=== PATIENT | female | born 1940 | race Caucasian/White ===

== ENCOUNTER → 2016-12-10 | Outpatient (CLI) | payer OTHER ==
[2016-12-10 15:17] LABS: CHOLESTEROL/HDL RATIO 3.4
== END | disposition home or self-care (01) ==
LOC: C.LABMFLN 07:47
PROVIDERS: ATTEND Family Medicine
DX: E55.9 Vitamin D deficiency, unspecified (principal); E78.5 Hyperlipidemia, unspecified

== ENCOUNTER 2021-08-29 11:33 | Observation (INO) ==
[2021-08-29 12:38] LABS: Basophils # (auto) 0.01 K/uL (0-0.2); Basophils % (auto) 0.2 %; Eosinophils # (auto) 0.17 K/uL (0-0.5); Eosinophils % (auto) 2.9 %; Hematocrit (blood only) 41.2 % (37-47); Hemoglobin 13.8 g/dL (12.0-16.0); Immature Granulocytes # (auto) 0.01 K/uL (0.00-0.02); Immature Granulocytes % (auto) 0.2 %; Lymphocytes # (auto) 1.16 K/uL (1.2-3.4); Lymphocytes % (auto) 19.5 %; Mean Corpuscular Hemoglobin 32.2 pg (25-34); Mean Corpuscular Hgb Conc 33.5 g/dL (32-36); Mean Platelet Volume 9.5 fL (7.4-10.4); Monocytes # (auto) 0.38 K/uL (0.11-0.59); Monocytes % (auto) 6.4 %; Neutrophils # (auto) 4.21 K/uL (1.4-6.5); Neutrophils % (auto) 70.8 %; Platelet Count 181 K/uL (130-400); RDW Coefficient of Variation 13.2 % (11.5-14.5); RDW Standard Deviation 45.6 fL (36.4-46.3); Red Blood Count 4.29 M/uL (4.2-5.4); White Blood Count 5.94 K/uL (4.8-10.8)
--- NOTE | 2021-08-29 12:44 | XRay Report ---
XR chest 1V portable CLINICAL HISTORY: Atypical chest pain TECHNIQUE: Single frontal radiograph of the chest was obtained. Comparison: None available at the time of this dictation. FINDINGS: No lines and tubes are seen. The cardiomediastinal silhouette is normal. The lungs are clear. Possibl e small left pleural effusion versus epicardial fat pad. IMPRESSION: No acute abnormality. Possible small left pleural effusion versus epicardial fat pad. ACT 112: Negative or not required by law. Electronically signed by: Cy Chow M.D. 08/29/2021 12:43 PM
[2021-08-29 12:49] LABS: Albumin Globulin Ratio 1.6 (0.9-2); Albumin Level 4.1 gm/dl (3.4-5.0); Bilirubin,Total 0.9 mg/dl (0.2-1.0); Creatinine Clr Calc Pharmacy 61.2 ml/min; Est GFR (African American) 98.4 ml/min; Est GFR (Non-African American) 84.9 ml/min; Globulin 2.6 gm/dl (2.5-4.0); Potassium 3.8 mmol/L (3.5-5.1); Total Protein 6.7 gm/dl (6.0-8.3)
--- NOTE | 2021-08-29 14:48 | History & Physical Report ---
Date of Service August 29, 2021 Assessment & Plan (1) Coronary artery disease: Plan: Chest pain, Hx CAD with PCI RCA SHAGU[place] 01/15/[address] Lopez. Last note 05/10/2021. DAPT was switched to aspirin monotherapy at that visit patient has been doing well Leukocytosis, hemoglobin normal, MCV normal Sodium, potassium normal Creatinine 0.60 creatinine clearance drug dosing 61.2 Transaminases normal High-sensitivity troponin normal, repeat pending Admitting EKG: Normal sinus rhythm, no acute ST segment or T wave changes. Lipids 07/03/2021: Triglycerides 198, cholesterol 154, LDL 55, VLDL 40, HDL 59 Lipase on admission 51, normal COVID pending CXR: No acute abnormality, possible small left pleural effusion versus epicardial fat pad Admit for cardiac rule out. Echo pending. Troponins trended as noted. Patient has had dilution of symptoms by time of admission. (2) Osteoporosis: Plan: Osteoporosis Bone densitometry 11/16/2020 with 10-year risk 17, hip fracture 5.6. High risk. Patient had an allergic reaction to Fosamax. On Prolia as outpatient Continue calcium/vitamin D supplementation (3) Rosacea: Plan: Rosacea Follows with Dr. Soto dermatology Has been taking minocycline 50 mg twice daily Pruritus improved with switching Dial soap to Dove Patient reports he feels she is doing well, stomach tolerates minocycline well. Denies side effects of minocycline, denies GERD, but does note stomach upset to tetracycline. Discussed with patient that minocycline is a tet racycline, but she reports that she has not had any symptoms while on this particular antibiotic. ? Gastritis. Has deferred PPI due to osteoporosis, will trial H2 crystal. No symptoms at time of assessment. (4) Hyperlipidemia: Plan: Hyperlipidemia Continue atorvastatin 40 mg daily (5) History of ileostomy: Plan: Patient reports had a history of obstruction, no history of cancer Routine ostomy care, will continue to obtain collateral but appears to be at baseline no change in output or signs of obstruction (6) Memory loss: Plan: Cognitive decline 03/27/2020 normal mini cog, decreased to 4 points 03/27/2021 Oriented to name, place, and month. Not oriented to date, reorients easily. Answers questions appropriately, and is able to verbalize back her reason for admission and plan Delirium precautions (7) Vitamin B 12 deficiency: Plan: Vitamin B12 deficiency Low normal at last check, will continue supplementation Folate normal at last check Plan: DVT prophylaxis: Lovenox Diet: Heart healthy Disposition: Medical telemetry for cardiac eval CODE STATUS: DNR/DNI per patient. Is able to verbalize back the risk/benefits of CPR/intubation at bedside, is able to express that she would not want heroic measures. Given history of some cognitive decline did attempt to reach out to discuss this with her , however was not available by phone with no voicemail box set up. History of Present Illness Primary Care Provider: Bernardo Jung MD Mirta is an 80-year-old female history of CAD status post PCI 01/2020, hypercholesterolemia, rosacea, osteopenia, vitamin D deficiency, vitamin B12 deficiency who was at a medical appointment with her when she felt ill and developed chest pain and became pale. She presented to the ER for cardiac evaluation. Normotensive with symptom resolution by time of ER evaluation. Of note on medical reconciliation report the patient has not filled her nitro/Plavix in many months. Middle substernal chest pain. 6-7/10 intensity, 'hurting quality, not real sharp but hurt.' Did not go into the shoulder or neck. +Mild shortness of breath. +sweating. Episode lasted about 15-30 minutes. No chest pain in the last few weeks/months. Normally walks and can go up stairs without pain or limitation. mild nausea. No vomiting. Has an ileostomy from 'trouble where I just couldn't go until they had to remove a blockage.' No history of cancer. Denies fevers, chills, sweats, cough, shortness of breath at bedside no lightheadedness/dizziness/syncope/presyncope Medical History: Reviewed Medications: Reviewed Surgical History: Reviewed Allergies: Reviewed. +nausea to tetracycline. Social History: No tobacco/alcohol use. No recreaitnal drug use. Code Status: Surrogate would be Enrike Paz. Tempted to reach by phone on admission, not available by phone with no voicemail box set up. Allergies Allergy/AdvReac Type Severity Reaction Status Date / Time alendronate sodium Allergy Severe TROUBLE Verified 08/29/21 12:49 BREATHING metronidazole Allergy Unknown UNKNOWN Verified 08/29/21 12:49 codeine AdvReac Unknown NAUSEA Verified 08/29/21 12:49 Home Medications Medication Instructions Recorded Confirmed Type glucosamine 750 wl-rycdvxhjqzq-irl 1 tab PO DAILY tab 12/08/18 07/03/21 History no1 625 mg-C 30 mg-emma 1 mg tablet (Nqbdxoqiblb-Pvkxqcrtard-IFK) loratadine 10 mg tablet 10 mg PO DAILY #90 tab 12/08/18 07/03/21 History ergocalciferol (vitamin D2) 1,250 50,000 units PO 2XWK cap 12/11/18 07/03/21 History mcg (50,000 unit) capsule clopidogrel 75 mg tablet 75 mg PO DAILY 02/09/20 07/03/21 History metoprolol tartrate 50 mg tablet 50 mg PO BID 02/09/20 08/29/21 History aspirin 81 mg tablet,delayed 81 mg PO DAILY #30 tab 03/27/20 08/29/21 Rx release nitroglycerin 0.4 mg sublingual 0.4 mg SUBLINGUAL Q5M PRN #25 tab 03/27/20 07/03/21 Rx tablet atorvastatin 40 mg tablet 40 mg PO DAILY #90 tab 07/03/21 08/29/21 Rx denosumab 60 mg/mL subcutaneous 60 mg SUBCUT ONCE #1 ml 07/03/21 08/29/21 Rx syringe (Prolia) triamcinolone acetonide 0.1 % 1 applic TOPICAL BID PRN #80 g 07/03/21 08/29/21 Rx topical cream minocycline 50 mg capsule 50 mg PO BID #60 cap 07/26/21 08/29/21 Rx Past Med/Surg History Medical History Allergic rhinitis Chronic low back pain Coronary artery disease Hearing loss of both ears due to cerumen impaction History of melanoma Hyperlipidemia Mohs defect of cheek Osteopenia Osteoporosis Rosacea Vitamin B 12 deficiency Vitamin D deficiency Surgical History History of blepharoplasty History of cataract surgery History of cystostomy History of ileostomy Family History Father Coronary heart disease Hypertension Myocardial infarction Sister Breast cancer Bipolar disorder Son Ventricular fibrillation Other Cancer Social History Smoking Status: Never smoker Hx Alcohol Use: No Hx Substance Use: No Preferred Language: Welsh Communication Ability: Effective Visual Impairment: No Limitations Commercial Photographer Required: No Beliefs That Will Affect Care: None marital status: Current Living Situation: Spouse current occupational status: retired Feels Safe at Home: Yes Childhood Exposure to Second-Hand Smoke: Yes caffeine: Yes during the past year weight has: remained stable Dental Care, Regularly: Yes Physical Activity Frequency: Does not Exercise Seatbelt Use: always Sunscreen Use: Yes Review of Systems Review of Systems: All systems reviewed & are unremarkable except as noted in Subjective Physical Exam Physical Exam: General: Alert, oriented to name, place, month. Not oriented to year, easily reorientsNAD. Cooperative. HEENT: Atraumatic, normocephalic. Pupils equal reactive to light. Vision and hearing grossly intact Pulm: CTAB A&P. -wheezes, -rales, -rhonchi. Symmetrical chest rise. No increase in work of breathing. No respiratory distress. Cardiac: RRR, -mrg. Radial pulses intact and symmetrical. Abdominal: Nontender, nondistended, soft. BS present. Ostomy bag in place in right lower quadrant, draining brown and some green material. Nontender, no erythema. Output normal per patient. Extremities: Sensation to soft touch intact in hands and feet without asymmetry. No lower extremity edema. Trench Digger strength, ankle plantarflexion/dorsiflexion, hip flexion 5/5 and symmetrical. Results & Data Results & Data ([facility]) Vital Signs (Past 12 Hours) Vital Signs Temp Pulse Pulse Resp BP BP Pulse Ox 08/29/21 13:18 61 138/74 97 08/29/21 11:49 97 08/29/21 11:48 36.5 C 59 L 20 144/59 H 97 08/29/21 11:40 36.5 C 62 20 144/59 H 98 PG Care Time/CCT Total # of Minutes Spent Total Time Spent with Patient: Total time spent is greater than 50% in coordination of care (as documented) at patient's floor/unit and/or counseling patient: Coding Level of Care Code INT OBSERVATION CARE 70M LVL 3 Diagnoses Coronary artery disease I25.10 Osteoporosis M81.0 Rosacea L71.9 Hyperlipidemia E78.5 History of ileostomy Z98.890 Memory loss R41.3 Vitamin B 12 deficiency E53.8
--- NOTE | 2021-08-29 15:01 | Emergency Department Note ---
Impression & Plan Left-sided chest pain ED Provider Note INFORMANT: Patient ED PROVIDER(S): Johnathan Dutton MD CHIEF COMPLAINT: Chest pain PLAN: Disposition: Admitted Condition: Good Outpatient prescription management: none Referral: None MEDICAL DECISION MAKING: Patient presented because of chest pain. EKG did not reveal any acute findings. Her CBC and chemistry panel were unremarkable. Troponin was negative x1. Chest x-ray was negative for acute disease. Given her history of coronary disease further management in the hospital was felt to be appropriate. [facility] Patient was evaluated in the ER for further management. Triage Nursing notes reviewed and agree them. Vital Signs: reviewed and remarkable for no significant abnormalities Differential diagnosis: Cardiac ischemia, aortic dissection, pulmonary embolism, pneumothorax, pneumonia, pericarditis, myocarditis, esophageal rupture, GERD, cholecystitis, pancreatitis, musculoskeletal, as well as other pathologies. Diagnostics interpreted by me: ECG: Twelve-lead ECG reveals normal sinus rhythm at [address] elevation or depression. Left axis deviation and low voltage QRS. No PACs or PVCs. Poor R wave progression. Cardiac Monitoring: Cardiac monitoring ordered by me: The patient was placed on continuous cardiac monitoring and observed. It revealed a normal sinus rhythm at 61 beats per minute without ectopy or evidence of dysrhythmia. Imaging studies: Chest x-ray. Findings: A chest x-ray was performed and revealed no pneumothorax, effusion, infiltrate, pulmonary edema, free air under the diaphragm, or wide mediastinum. Impression: No acute disease. HPI: The patient is a 80 year old female who presents to the Emergency Room with complaints of left-sided chest. This started less than an hour ago and is currently resolved. The patient also notes the following associated symptoms, none. The patient has been given aspirin for relieving factors. Current pain is rated as 0/10. Pain was a 4 out of 10. Patient does have a history of coronary stents. states that she stated she did not feel well and looked pale. Pt denies LOC, headache, fevers, chills, diaphoresis, visual changes, neck pain, breathing difficulties, nausea, vomiting, abdominal pain, back pain, melena, hematochezia, urinary symptoms, numbness, weakness, lymphadenopathy, rash, or other complaints. ROS: See above HPI for pertinent positives & negatives. A total of 10 systems reviewed and were otherwise negative. PAST MEDICAL HISTORY:See Below , coronary artery disease PAST SURGICAL HISTORY:See Below, coronary stent FAMILY HISTORY:See Below SOCIAL HISTORY:See Below, HOME MEDICATIONS:See Below ALLERGIES:See Below VITALS:See Below PHYSICAL EXAMINATION: GENERAL: Awake, alert, well-appearing, in no distress HENT: Normocephalic, atraumatic. Oropharynx unremarkable. EYES: Normal conjunctiva. Sclera non-icteric. NECK: Inspection normal. Non-tender. Supple. No nuchal rigidity. FROM. No masses. RESPIRATORY: Clear to auscultation. No wheezes. No rales. Normal respiratory effort. CARDIAC: Normal rate. Normal rhythm. No murmurs. No rubs. Extremities warm and well perfused. Pulses equal. No JVD. GI: Soft, non-distended. No tenderness to palpation. No rebound or guarding. No masses. RECTAL: Deferred. MUSCULOSKELETAL: Atraumatic. Chest examination reveals no tenderness. The back is symmetrical on inspection without obvious abnormality. There is no CVA tenderness to palpation. No joint edema. LOWER EXTREMITIES: Calves are equal size bilaterally and non-tender. No edema. No discoloration. NEURO: Normal sensorium. No sensory or motor deficits noted. SKIN: No rash or jaundice noted. Johnathan Dutton MD Past Med/Surg History Medical History Allergic rhinitis Chronic low back pain Coronary artery disease Hearing loss of both ears due to cerumen impaction History of melanoma Hyperlipidemia Mohs defect of cheek Osteopenia Osteoporosis Rosacea Vitamin B 12 deficiency Vitamin D deficiency Surgical History History of blepharoplasty History of cataract surgery History of cystostomy History of ileostomy Family History Father Coronary heart disease Hypertension Myocardial infarction Sister Breast cancer Bipolar disorder Son Ventricular fibrillation Other Cancer Social History Smoking Status: Never smoker Hx Alcohol Use: No Hx Substance Use: No Preferred Language: Kiswahili Communication Ability: Effective Visual Impairment: No Limitations Trash Hauler Required: No Beliefs That Will Affect Care: None marital status: Current Living Situation: Spouse current occupational status: retired Feels Safe at Home: Yes Childhood Exposure to Second-Hand Smoke: Yes caffeine: Yes during the past year weight has: remained stable Dental Care, Regularly: Yes Physical Activity Frequency: Does not Exercise Seatbelt Use: always Sunscreen Use: Yes Allergies Allergies Allergy/AdvReac Type Severity Reaction Status Date / Time alendronate sodium Allergy Severe TROUBLE Verified 08/29/21 12:49 BREATHING metronidazole Allergy Unknown UNKNOWN Verified 08/29/21 12:49 codeine AdvReac Unknown NAUSEA Verified 08/29/21 12:49 Home Meds Home Medications Medication Instructions Recorded Confirmed glucosamine 750 pv-xpjoertbskr-tgh 1 tab PO DAILY tab 12/08/18 07/03/21 no1 625 mg-C 30 mg-emma 1 mg tablet (Pmgxkjoussf-Cijspfuyphb-MDE) loratadine 10 mg tablet 10 mg PO DAILY #90 tab 12/08/18 07/03/21 ergocalciferol (vitamin D2) 1,250 50,000 units PO 2XWK cap 12/11/18 07/03/21 mcg (50,000 unit) capsule clopidogrel 75 mg tablet 75 mg PO DAILY 02/09/20 07/03/21 metoprolol tartrate 50 mg tablet 50 mg PO BID 02/09/20 08/29/21 Previous Rx's Medication Instructions Recorded aspirin 81 mg tablet,delayed 81 mg PO DAILY #30 tab 03/27/20 release nitroglycerin 0.4 mg sublingual 0.4 mg SUBLINGUAL Q5M PRN #25 tab 03/27/20 tablet atorvastatin 40 mg tablet 40 mg PO DAILY #90 tab 07/03/21 denosumab 60 mg/mL subcutaneous 60 mg SUBCUT ONCE #1 ml 07/03/21 syringe (Prolia) triamcinolone acetonide 0.1 % 1 applic TOPICAL BID PRN #80 g 07/03/21 topical cream minocycline 50 mg capsule 50 mg PO BID #60 cap 07/26/21 Results & Data (ED) Vital Signs Vital Signs - 24 hr 08/29/21 11:40 08/29/21 11:48 08/29/21 11:49 Temperature 36.5 C 36.5 C Temperature Source Oral Oral Pulse Rate 62 Pulse Rate [Finger] 59 L Respiratory Rate 20 20 Blood Pressure 144/59 H Blood Pressure [Left Arm] 144/59 H Blood Pressure Mean 87 Blood Pressure Mean [Left Arm] 87 Blood Pressure Position Lying Blood Pressure Position [Left Arm] Lying Pulse Oximetry 98 97 97 Oxygen Delivery Method Room Air Room Air Room Air Sepsis Recent Fever Within 48 Hours No Sepsis New/Unexplained Change in Mental Status No Sepsis Action Taken by Nursing No Action Required 08/29/21 13:18 Temperature Temperature Source Pulse Rate Pulse Rate [Finger] 61 Respiratory Rate Blood Pressure Blood Pressure [Left Arm] 138/74 Blood Pressure Mean Blood Pressure Mean [Left Arm] 95 Blood Pressure Position Blood Pressure Position [Left Arm] Lying Pulse Oximetry 97 Oxygen Delivery Method Room Air Sepsis Recent Fever Within 48 Hours Sepsis New/Unexplained Change in Mental Status Sepsis Action Taken by Nursing Laboratory Data Result diagrams: 08/29/21 11:45 08/29/21 11:45 Lab Results 08/29/21 08/29/21 08/29/21 Range/Units 11:45 11:45 11:45 WBC 5.94 (4.8-10.8) K/uL RBC 4.29 (4.2-5.4) M/uL Hgb 13.8 (12.0-16.0) g/dL Hct 41.2 (37-47) % MCV 96.0 (80-100) fL MCH 32.2 (25-34) pg MCHC 33.5 (32-36) g/dL RDW Std Deviation 45.6 (36.4-46.3) fL RDW Coeff of Felicia 13.2 (11.5-14.5) % Plt Count 181 (130-400) K/uL MPV 9.5 (7.4-10.4) fL Immature Gran % (Auto) 0.2 % Neut % (Auto) 70.8 % Lymph % (Auto) 19.5 % [place] % (Auto) 6.4 % Eos % (Auto) 2.9 % Baso % (Auto) 0.2 % Neut # (Auto) 4.21 (1.4-6.5) K/uL Lymph # (Auto) 1.16 L (1.2-3.4) K/uL [place] # (Auto) 0.38 (0.11-0.59) K/uL Eos # (Auto) 0.17 (0-0.5) K/uL Baso # (Auto) 0.01 (0-0.2) K/uL Immature Gran # (Auto) 0.01 (0.00-0.02) K/uL Sodium 140 (136-145) mmol/L Potassium 3.8 (3.5-5.1) mmol/L Chloride 104 (98-107) mmol/L Carbon Dioxide 27 (21-32) mmol/L Anion Gap 9 (3-11) BUN 9 (6-23) mg/dl Creatinine 0.60 (0.6-1.2) mg/dl Est Cr Clr Drug Dosing 61.2 ml/min Est GFR ( Amer) 98.4 ml/min Est GFR (Non-Af Amer) 84.9 ml/min BUN/Creatinine Ratio 15.0 (10-20) Glucose 116 H (70-99(Fasting)) mg/dl Calcium 9.0 (8.5-10.1) mg/dl Total Bilirubin 0.9 (0.2-1.0) mg/dl AST 16 (13-39) U/L ALT 11 (7-52) U/L Alkaline Phosphatase 91 (34-104) U/L Troponin I High Sens 4.9 (0-14) pg/ml Total Protein 6.7 (6.0-8.3) gm/dl Albumin 4.1 (3.4-5.0) gm/dl Globulin 2.6 (2.5-4.0) gm/dl Albumin/Globulin Ratio 1.6 (0.9-2) Lipase 51 (11-82) U/L 08/29/21 Range/Units 14:00 WBC (4.8-10.8) K/uL RBC (4.2-5.4) M/uL Hgb (12.0-16.0) g/dL Hct (37-47) % MCV (80-100) fL MCH (25-34) pg MCHC (32-36) g/dL RDW Std Deviation (36.4-46.3) fL RDW Coeff of Felicia (11.5-14.5) % Plt Count (130-400) K/uL MPV (7.4-10.4) fL Immature Gran % (Auto) % Neut % (Auto) % Lymph % (Auto) % [place] % (Auto) % Eos % (Auto) % Baso % (Auto) % Neut # (Auto) (1.4-6.5) K/uL Lymph # (Auto) (1.2-3.4) K/uL [place] # (Auto) (0.11-0.59) K/uL Eos # (Auto) (0-0.5) K/uL Baso # (Auto) (0-0.2) K/uL Immature Gran # (Auto) (0.00-0.02) K/uL Sodium (136-145) mmol/L Potassium (3.5-5.1) mmol/L Chloride (98-107) mmol/L Carbon Dioxide (21-32) mmol/L Anion Gap (3-11) BUN (6-23) mg/dl Creatinine (0.6-1.2) mg/dl Est Cr Clr Drug Dosing ml/min Est GFR ( Amer) ml/min Est GFR (Non-Af Amer) ml/min BUN/Creatinine Ratio (10-20) Glucose (70-99(Fasting)) mg/dl Calcium (8.5-10.1) mg/dl Total Bilirubin (0.2-1.0) mg/dl AST (13-39) U/L ALT (7-52) U/L Alkaline Phosphatase (34-104) U/L Troponin I High Sens 4.6 (0-14) pg/ml Total Protein (6.0-8.3) gm/dl Albumin (3.4-5.0) gm/dl Globulin (2.5-4.0) gm/dl Albumin/Globulin Ratio (0.9-2) Lipase (11-82) U/L Imaging Data Radiologist's Impression: Chest X-Ray 08/29/21 12:08 XR chest 1V portable CLINICAL HISTORY: Atypical chest pain TECHNIQUE: Single frontal radiograph of the chest was obtained. Comparison: None available at the time of this dictation. FINDINGS: No lines and tubes are seen. The cardiomediastinal silhouette is normal. The lungs are clear. Possible small left pleural effusion versus epicardial fat pad. IMPRESSION: No acute abnormality. Possible small left pleural effusion versus epicardial fat pad. ACT 112: Negative or not required by law. Electronically signed by: Cy Chow M.D. 08/29/2021 12:43 PM Discharge Plan Visit Data Chief Complaint: Cardiac Assessment Stated Complaint: chest pain ED Provider: Johnathan Dutton Discharge Problem: Left-sided chest pain Forms Stand Alone Forms: [facility] Prescriptions Prescriptions: No Action minocycline 50 mg capsule 50 mg PO BID Qty: 60 RF: 5 loratadine 10 mg tablet 10 mg PO DAILY Qty: 90 RF: 0 uytplupi-mfwsu-gbf5-C-emma-bor [Olunvitu-Znanr-PCH(with boron)] 963-389-70-1 mg tablet 1 tab PO DAILY RF: 0 ergocalciferol (vitamin D2) 50,000 unit capsule 50,000 units PO 2XWK RF: 0 aspirin 81 mg tablet,delayed release (DR/EC) 81 mg PO DAILY Qty: 30 RF: 2 nitroglycerin 0.4 mg tablet, sublingual 0.4 mg sublingual Q5M PRN (Reason: chest pain) Qty: 25 RF: 0 metoprolol tartrate 50 mg tablet 50 mg PO BID RF: 0 clopidogrel 75 mg tablet 75 mg PO DAILY RF: 0 atorvastatin 40 mg tablet 40 mg PO DAILY Qty: 90 RF: 3 triamcinolone acetonide 0.1 % cream 1 applic topical BID PRN (Reason: skin irritation) Qty: 80 RF: 3 Prolia 60 mg/mL syringe 60 mg subcut ONCE Qty: 1 RF: 2 Referrals Referrals: Bernardo Jung MD [Primary Care Provider] -
--- NOTE | 2021-08-29 17:08 | Electrocardiogram Report ---
Test Reason : Blood Pressure : / mmHG Vent. Rate : 060 BPM Atrial Rate : 060 BPM P-R Int : 176 ms QRS Dur : 084 ms QT Int : 476 ms P-R-T Axes : 052 -45 026 degrees QTc Int : 476 ms Normal sinus rhythm Left axis deviation Low voltage QRS Cannot rule out Anterior infarct , age undetermined Abnormal ECG When compared with ECG of 06-APR-2013 11:49, Significant changes have occurred Confirmed by Jonah Dumont ([id number]) on 08/29/2021 5:08:43 PM Referred By: Confirmed By:Jonah Dumont
[2021-08-29] MEDS ORDERED: ACETAMINOPHEN 325 MG TAB PO PRN (18:32)
[2021-08-29] MEDS ORDERED: NITROGLYCERIN SL 0.4 MG/TAB TAB SL PRN (18:32)
[2021-08-29] MEDS: CALCIUM 600MG + VIT D 400 IU TAB PO SCH (21:54)
[2021-08-29] MEDS: METOPROLOL TARTRATE 25 MG TAB PO SCH (21:55)
[2021-08-29] MEDS: FAMOTIDINE 20 MG in SYRINGE 3 ML IV SCH (22:01)
[2021-08-30 05:50] LABS: Basophils # (auto) 0.01 K/uL (0-0.2); Basophils % (auto) 0.2 %; Eosinophils % (auto) 4.3 %; Hemoglobin 11.7 g/dL (12.0-16.0); Immature Granulocytes # (auto) 0.01 K/uL (0.00-0.02); Immature Granulocytes % (auto) 0.2 %; Lymphocytes # (auto) 1.07 K/uL (1.2-3.4); Lymphocytes % (auto) 22.9 %; Mean Corpuscular Hemoglobin 31.7 pg (25-34); Mean Corpuscular Hgb Conc 33.4 g/dL (32-36); Mean Corpuscular Volume 94.9 fL (80-100); Monocytes # (auto) 0.49 K/uL (0.11-0.59); Monocytes % (auto) 10.5 %; Neutrophils # (auto) 2.89 K/uL (1.4-6.5); Neutrophils % (auto) 61.9 %; Platelet Count 158 K/uL (130-400); RDW Standard Deviation 45.1 fL (36.4-46.3); Red Blood Count 3.69 M/uL (4.2-5.4); White Blood Count 4.67 K/uL (4.8-10.8)
[2021-08-30 06:24] LABS: BUN Creatinine Ratio 16.7 (10-20); Blood Urea Nitrogen 9 mg/dl (6-23); Calcium 8.4 mg/dl (8.5-10.1); Carbon Dioxide 26 mmol/L (21-32); Chloride 105 mmol/L (98-107); Est GFR (African American) 101.1 ml/min; Est GFR (Non-African American) 87.3 ml/min; Glucose 93 mg/dl (70-99(Fasting))
[2021-08-30 07:32] LABS: Potassium 3.7 mmol/L (3.5-5.1)
[2021-08-30] MEDS: METOPROLOL TARTRATE 25 MG TAB PO SCH (08:29)
[2021-08-30] MEDS: CALCIUM 600MG + VIT D 400 IU TAB PO SCH (08:30)
[2021-08-30] MEDS ORDERED: CYANOCOBALAMIN (B-12) 100 MCG TABLET PO SCH (09:00)
[2021-08-30] MEDS ORDERED: ASPIRIN 81 MG ECTAB PO SCH (09:00)
[2021-08-30] MEDS ORDERED: ATORVASTATIN 40 MG TAB PO SCH (09:00)
[2021-08-30] MEDS ORDERED: ENOXAPARIN INJ 40 MG/0.4 ML SYR SQ SCH (09:00)
[2021-08-30] MEDS: FAMOTIDINE 20 MG in SYRINGE 3 ML IV SCH (09:21)
--- NOTE | 2021-08-30 12:51 | Discharge Summary ---
Date of Service August 30, 2021 Admission HPI Per Admitting Provider Mirta is an 80-year-old female history of CAD status post PCI 01/2020, hypercholesterolemia, rosacea, osteopenia, vitamin D deficiency, vitamin B12 deficiency who was at a medical appointment with her when she felt ill and developed chest pain and became pale. She presented to the ER for cardiac evaluation. Normotensive with symptom resolution by time of ER evaluation. Of note on medical reconciliation report the patient has not filled her nitro/Plavix in many months. Middle substernal chest pain. 6-7/10 intensity, 'hurting quality, not real sharp but hurt.' Did not go into the shoulder or neck. +Mild shortness of breath. +sweating. Episode lasted about 15-30 minutes. No chest pain in the last few weeks/months. Normally walks and can go up stairs without pain or limitation. mild nausea. No vomiting. Has an ileostomy from 'trouble where I just couldn't go until they had to remove a blockage.' No history of cancer. Denies fevers, chills, sweats, cough, shortness of breath at bedside no lightheadedness/dizziness/syncope/presyncope Medical History: Reviewed Medications: Reviewed Surgical History: Reviewed Allergies: Reviewed. +nausea to tetracycline. Social History: No tobacco/alcohol use. No recreaitnal drug use. Code Status: Surrogate would be Enrike Paz. Tempted to reach by phone on admission, not available by phone with no voicemail box set up. Principal Diagnosis Chest Pain, noncardiac Discharge Exam General: Alert, NAD. Cooperative. HEENT: Atraumatic, normocephalic.Vision and hearing grossly intact Pulm: CTAB A&P. -wheezes, -rales, -rhonchi. Symmetrical chest rise. No increase in work of breathing. No respiratory distress. Cardiac: RRR, -mrg. Radial pulses intact and symmetrical. Abdominal: Nontender, nondistended, soft. BS present. Ostomy bag in place in right lower quadrant, draining brown and some green material. Nontender, no erythema. Output normal per patient. Extremities: Sensation to soft touch intact in hands and feet without asymmetry. No lower extremity edema. Traveling Inventory Associate strength, ankle plantarflexion/dorsiflexion, hip flexion 5/5 and symmetrical. Discharge Data Allergies Allergy/AdvReac Type Severity Reaction Status Date / Time alendronate sodium Allergy Severe TROUBLE Verified 08/29/21 12:49 BREATHING metronidazole Allergy Unknown UNKNOWN Verified 08/29/21 12:49 codeine AdvReac Unknown NAUSEA Verified 08/29/21 12:49 Consultations 08/29/21 15:01 ED Decision to Admit Stat Hospital Course (1) Coronary artery disease: To do as outpatient: 1. Follow-up with PCP, may consider stress test as outpatient 2. Patient did experience transient chest pain which resolved by time of evaluation with no recurrence during admission. Serial troponins were negative. Echo was completed but pending final read, follow-up as outpatient. No signs of ACS following hospitalist evaluation/admission. Patient does have a history of stomach upset on tetracycline's and has been taking minocycline.? Gastritis, started on famotidine Chest pain, Hx CAD with PCI RCA SHAGUFTA 01/15/[address] Lopez. Last note 05/10/2021. DAPT was switched to aspirin monotherapy at that visit patient has been doing well Leukocytosis, hemoglobin normal, MCV normal Sodium, potassium normal Creatinine 0.60 creatinine clearance drug dosing 61.2 Transaminases normal Admitting EKG: Normal sinus rhythm, no acute ST segment or T wave changes. Lipids 07/03/2021: Triglycerides 198, cholesterol 154, LDL 55, VLDL 40, HDL 59 Lipase on admission 51, normal COVID pending CXR: No acute abnormality, possible small left pleural effusion versus epicardial fat pad Echo completed but pending read at discharge. - Pt had resolution of symptoms with no recurrence during admit - High sensitivity troponin normal x3 (2) Osteoporosis: Osteoporosis Bone densitometry 11/16/2020 with 10-year risk 17, hip fracture 5.6. High risk. Patient had an allergic reaction to Fosamax. On Prolia as outpatient Continue calcium/vitamin D supplementation (3) Rosacea: Rosacea Follows with Dr. Soto dermatology Has been taking minocycline 50 mg twice daily Pruritus improved with switching Dial soap to Dove Patient reports he feels she is doing well, stomach tolerates minocycline well. Denies side effects of minocycline, denies GERD, but does note stomach upset to tetracycline. Discussed with patient that minocycline is a tetracycline, but she reports that she has not had any symptoms while on this particular antibiotic. ? Gastritis. Has deferred PPI due to osteoporosis, will trial H2 crystal. No symptoms at time of assessment. (4) Hyperlipidemia: Hyperlipidemia Continue atorvastatin 40 mg daily (5) History of ileostomy: Patient reports had a history of obstruction, no history of cancer Routine ostomy care, will continue to obtain collateral but appears to be at baseline no change in output or signs of obstruction (6) Memory loss: Cognitive decline 03/27/2020 normal mini cog, decreased to 4 points 03/27/2021 Oriented to name, place, and month. Not oriented to date, reorients easily. Answers questions appropriately, and is able to verbalize back her reason for admission and plan Delirium precautions (7) Vitamin B 12 deficiency: Vitamin B12 deficiency Low normal at last check, will continue supplementation Folate normal at last check DVT prophylaxis: Lovenox Diet: Heart healthy Disposition: Medical telemetry for cardiac eval CODE STATUS: DNR/DNI per patient. Is able to verbalize back the risk/benefits of CPR/intubation at bedside, is able to express that she would not want heroic measures. Given history of some cognitive decline did attempt to reach out to discuss this with her , however was not available by phone with no voicemail box set up. Total Time Total Time Spent Total Time Spent (In Minutes): Time spend day of discharge 25 minutes including direct patient care, documentation, review of labs and images, and coordination of care. Discharge Plan Discharge Items Patient Disposition: Home - Self-Care Reason For Visit: CHEST PAIN EVAL Discharge Diagnosis: Chest pain, likely noncardiac Activity: Resume your previous activity Non-emergency contact: Primary Care Provider Call non-emergency contact if: you have any medication questions, your symptoms worsen, your pain is not controlled and your pain is worsening Follow-up/Referrals: Bernardo Jung MD [Primary Care Provider] - 09/06/21 11:30 am Diet: Heart Healthy Add Attending Provider Instructions: You are seen in the hospital for chest pain and observed overnight for cardiac evaluation. Serial sets of high-sensitivity troponins, a blood marker for heart damage, were all normal x3. An ultrasound of your heart was pending final read at time of discharge, however your EKG and other blood work did not show any signs of heart damage/heart attack. You had been taking minocycline, and noted that you have had stomach upset to tetracyclines in the past. You have been placed on famotidine to help reduce stomach acid. This follow-up is being scheduled for you with your primary care provider, you should be seen within 1 week. If you do not receive a call to confirm your appointment within 48 hours please contact his office at the number above. If you develop any new or worsening symptoms including fever, chills, sweats, chest pain, chest pressure, difficulty breathing, uncontrolled nausea/vomiting, rash, wheezing, passing out or nearly passing out, bleeding, black/bloody bowel movements, or other new or concerning symptoms please call your primary care physician, or call 911 for re-evaluation in the emergency department if you are very concerned. Pending Studies at Discharge: No Stand-Alone Forms: [facility] Medications and DC Order Prescriptions: New famotidine 20 mg tablet 20 mg PO BID 42 Days Qty: 84 RF: 0 Continued minocycline 50 mg capsule 50 mg PO BID Qty: 60 RF: 5 loratadine 10 mg tablet 10 mg PO DAILY Qty: 90 RF: 0 hhbgmhhe-fqosb-hfo1-C-emma-bor [Qlvhmccx-Jnsga-ZAG(with boron)] 122-203-70-1 mg tablet 1 tab PO DAILY RF: 0 ergocalciferol (vitamin D2) 50,000 unit capsule 50,000 units PO 2XWK RF: 0 aspirin 81 mg tablet,delayed release (DR/EC) 81 mg PO DAILY Qty: 30 RF: 2 nitroglycerin 0.4 mg tablet, sublingual 0.4 mg sublingual Q5M PRN (Reason: chest pain) Qty: 25 RF: 0 metoprolol tartrate 50 mg tablet 50 mg PO BID RF: 0 clopidogrel 75 mg tablet 75 mg PO DAILY RF: 0 atorvastatin 40 mg tablet 40 mg PO DAILY Qty: 90 RF: 3 triamcinolone acetonide 0.1 % cream 1 applic topical BID PRN (Reason: skin irritation) Qty: 80 RF: 3 Prolia 60 mg/mL syringe 60 mg subcut ONCE Qty: 1 RF: 2 Discharge Orders: Discharge Order (Routine); Ordered 08/30/21 Ordered By: Terrence Patterson Admission Data Admit Date/Time: 08/29/21 15:09 Attending Provider: Terrence Patterson Admit Provider: Terrence Patterson Primary Care Provider: Bernardo Jung Other Providers: Terrence Patterson Coding Level of Care Code 08759 OBS Care - Discharge Diagnoses Coronary artery disease I25.10 Osteoporosis M81.0 Rosacea L71.9 Hyperlipidemia E78.5 History of ileostomy Z98.890 Memory loss R41.3 Vitamin B 12 deficiency E53.8
--- NOTE | 2021-08-30 16:08 | XCELERA ---
[id number]
== END 2021-08-30 15:02 | disposition home or self-care (01) ==
LOC: 2N 11:33 → ED 11:33 → 2N 18:11